=== PATIENT | female | born 1960 | race Caucasian/White ===

== ENCOUNTER 2016-08-11 07:19 | Emergency (ER) | payer OTHER ==
[~2016-08-11] VITALS: Ht 172.7 cm; Wt 100.0 kg
[~2016-08-11 07:19] MED LIST: LEVO150T7 PO
[2016-08-11 07:21] VITALS: BP 124/92; PULSE 82; RESP 20; TEMP 97.8; O2SAT 95
[2016-08-11] MEDS ORDERED: ALBUAER3 INH (07:56)
[2016-08-11] MEDS ORDERED: PRED-503 PO (07:56)
[2016-08-11] MEDS ORDERED: BENZ100 PO (07:56)
[2016-08-11] MEDS ORDERED: AZIT500T2 PO (07:56)
--- NOTE | 2016-08-11 07:57 | PD ---
HPI Chief Complaint: Cold / Flu Symptoms Time Seen by Provider: 07:54 Travel History International Travel<30 days: No Contact w/Intl Traveler<30days: No Traveled to known affect area: No History of Present Illness HPI 56-year-old female presents to the emergency department with complaint of chest congestion and cough 8 days. Reports subjective fever on Saturday but denies fever since. Denies sore throat, ear pain, nasal congestion. Cough is worse at night. Reports chest tightness. Denies shortness of breath. Says she can hear "rattling" in her chest at night. Denies abdominal pain, nausea, vomiting. Has an appointment with her primary care provider, Dr. Porras, on Saturday. Allergies to bee stings. No other modifying factors or associated signs and symptoms. PFSH Past Medical History Thyroid Disease: Yes ?: Not : 4 Para: 2 Miscarriage: 0 : 2 Past Surgical History Section: Yes (x2) Oral Surgery: Yes (wisdom teeth removed) Other Surgery: Yes (Cyst removed from tail of spine) Social History Alcohol Use: No Tobacco Use: No Substance Use: No (Patient denies any substance use/abuse.) Allergies-Medications (Allergen,Severity, Reaction): Coded Allergies: Bee Sting (Verified Allergy, Intermediate, swelling, 08/11/16) Reported Meds & Prescriptions Reported Meds & Active Scripts Active Tessalon Perles (Benzonatate) 100 Mg Cap 100 Mg PO TID PRN Azithromycin 500 Mg Tab 500 Mg PO DAILY Deltasone (Prednisone) 20 Mg Tab 40 Mg PO DAILY 5 Days Proair Hfa 8.5 GM Inh (Albuterol Sulfate) 90 Mcg/Act Aer 2 Puff INH Q4-6H PRN 108 mcg/actuation Levothyroxine (Levothyroxine Sodium) 150 Mcg Tab 150 Mcg PO DAILY Review of Systems Except as stated in HPI: all other systems reviewed are Neg Physical Exam Narrative GENERAL: Well-nourished, well-developed female patient, in no acute distress SKIN: Warm and dry. HEAD: Atraumatic. Normocephalic. EYES: Pupils equal and round. No scleral icterus. No injection or drainage. ENT: Mucosa pink and moist. EARS: Bilateral pinnae and external canals appear within normal limits. NECK: Trachea midline. No lymphadenopathy. CARDIOVASCULAR: Regular rate and rhythm. No murmur appreciated. RESPIRATORY: No accessory muscle use. Lungs clear to auscultation and with decreased air movement in bilateral bases. Breath sounds equal bilaterally. No retractions or tachypnea. No Audible wheezing noted. GASTROINTESTINAL: Abdomen soft, non-tender, nondistended. Hepatic and splenic margins not palpable. Bowel sounds are active 4 quadrants. MUSCULOSKELETAL: No obvious deformities. No clubbing. No cyanosis. No edema. NEUROLOGICAL: Awake and alert. Oriented 3. No obvious cranial nerve deficits. Motor grossly within normal limits. Normal speech. Moves all extremities. 5/5 strength to all extremities. PSYCHIATRIC: Appropriate mood and affect; insight and judgment normal. Data Data Last Documented VS Vital Signs Date Time Temp Pulse Resp B/P Pulse Ox O2 Delivery O2 Flow Rate FiO2 08/11/16 07:21 97.8 82 20 124/92 95 Room Air [facility] Medical Decision Making Medical Screen Exam Complete: Yes Emergency Medical Condition: Yes Medical Record Reviewed: Yes Differential Diagnosis Bronchitis, pneumonia, upper respiratory infection Narrative Course 56-year-old female physical examination consistent with bronchitis. Patient is afebrile and nontoxic-appearing. Reports subjective fever on Saturday, but denies fever since. Patient is in no acute distress and her oxygen saturation is 95% on room air. No retractions or tachypnea. Lungs are clear and equal bilaterally with decreased air movement in bilateral bases. I did recommend a chest x-ray, albuterol nebulizer, and to start steroids in the ER. The patient declined all this therapy and said she knows what is wrong with her that she just needs a Z-Joel. She says the albuterol nebulizer will make her vomit and she doesn't want to exacerbate her symptoms anymore. She says she doesn't like to take medications and would rather not take the oral steroids. I discussed my recommendations again and the patient continued to decline, requesting only an antibiotic. I will prescribe a pro-air inhaler, Deltasone, and Tessalon Perles and the patient can use the prescriptions at her discretion ; this was discussed with the patient. Azithromycin prescribed for home. Patient has follow-up appointment with Dr. Porras on Saturday. Patient verbalizes understanding and agreement with treatment plan. Patient is medically cleared and stable for discharge. Discussed reasons to return to the emergency department. Instructed patient to follow up with primary care provider. Patient agrees with treatment plan. The patients vital signs are stable and the patient is stable for outpatient follow-up and treatment. Patient discharged home, stable and in no acute distress. Diagnosis Primary Impression: Bronchitis Referrals: Primary Care Physician Patient Instructions: Acute Bronchitis (ED), General Instructions, Safe Use of Cough and Cold Medicines (ED) Departure Forms: Tests/Procedures, Work Release Enter return to work date: Aug 13, 2016 Additional Instructions: Use Albuterol inhaler as prescribed Take oral steroids as prescribed and complete full course Use Tessalon Perles as prescribed to decrease coughing spasms [id number] decongestants or antihistamines as directed and as needed for symptom management Your cough can last 4-6 weeks Drink plenty of fluids to prevent dehydration Use hot air humidifier to decrease cough exacerbation Turn off ceiling fans and sleep with head of bed elevated Avoid triggers such as second hand smoke, dust, known allergens Follow-up with your primary care provider Return to the emergency department immediately with worsening of symptoms Med/Other Pt SpecificInfo: Prescription(s) given Scripts Benzonatate (Tessalon Perles)100 Mg [id number] Mg PO TID PRN (COUGH) #20 CAP Ref 0 Prov:Britney Cook 08/11/16 Azithromycin 500 Mg [id number] Mg PO DAILY #5 TAB Ref 0 Prov:Britney Cook 08/11/16 Prednisone (Deltasone)20 Mg Tab40 Mg PO DAILY 5 Days Ref 0 Prov:Britney Cook 08/11/16 Albuterol 8.5 GM Inh (Proair Hfa 8.5 GM Inh)90 Mcg/Act Aer2 Puff INH Q4-6H PRN ( SOB/WHEEZING) #1 INHALER Ref 0 108 mcg/actuation Prov:Britney Cook 08/11/16 Disposition: 01 DISCHARGE HOME Condition: Stable Britney Cook Aug 11, 2016 07:57
[2016-08-12] MEDS ORDERED: LEVO150T7 PO (06:26)
[2016-08-13] MEDS ORDERED: AZIT500T2 PO (16:22)
[2016-09-27] MEDS ORDERED: LEVO150T7 PO (08:37)
== END 2016-08-11 08:15 | disposition home or self-care (01) ==
LOC: NEPK 07:19
DX: J40 Bronchitis, not specified as acute or chronic (principal); E07.9 Disorder of thyroid, unspecified
CPT/HCPCS: 99283

== ENCOUNTER → 2016-09-20 | Outpatient (CLI) | payer OTHER ==
[~2016-09-20] MED LIST changes: +AZIT500T2 PO
[2016-09-20 12:54] LABS: AUTOMATED NEUTROPHIL # 2.7 TH/MM3 (1.8-7.7); BASOPHIL # 0.1 TH/MM3 (0-0.2); BASOPHIL % 1.1 % (0.0-2.0); EOSINOPHIL # 0.1 TH/MM3 (0-0.4); EOSINOPHIL % 1.4 % (0.0-4.0); HEMO FLAGS DIFF FINAL; LYMPH % 34.8 % (9.0-44.0); LYMPHOCYTE # 1.7 TH/MM3 (1.0-4.8); MEAN CELL VOLUME 91.4 FL (80.0-100.0); MEAN CORPUSCULAR HEMOGLOBIN 29.7 PG (27.0-34.0); MEAN CORPUSCULAR HGB CONC 32.5 % (32.0-36.0); MONO % 8.3 % (0.0-8.0); NEUT % 54.4 % (16.0-70.0); PLATELET COUNT 348 TH/MM3 (150-450); RED BLOOD COUNT 4.26 MIL/MM3 (4.00-5.30); WHITE BLOOD COUNT 4.9 TH/MM3 (4.0-11.0)
[2016-09-20 13:24] LABS: ALT (GPT) 23 U/L (10-53); ANION GAP 7 MEQ/L (5-15); AST (GOT) 19 U/L (15-37); BICARBONATE 29.7 MEQ/L (21.0-32.0); BLOOD UREA NITROGEN 14 MG/DL (7-18); CHLORIDE 104 MEQ/L (98-107); GLOMERULAR FILTRATION RATE 100 ML/MIN (>89); GLUCOSE,FASTING 79 MG/DL (74-99); POTASSIUM 4.1 MEQ/L (3.5-5.1); SODIUM (NA) 141 MEQ/L (136-145)
[2016-09-20 13:35] LABS: ALKALINE PHOSPHATASE 71 U/L (45-117); HDL CHOLESTEROL 63.9 MG/DL (40.0-60.0); LDL CHOLESTEROL 95 MG/DL (0-99); TOTAL BILIRUBIN ADULT 0.9 MG/DL (0.2-1.0)
== END ==
LOC: CLAB 12:25
PROVIDERS: ATTEND Family Medicine
DX: J40 Bronchitis, not specified as acute or chronic (principal); E03.9 Hypothyroidism, unspecified; M54.30 Sciatica, unspecified side; E66.9 Obesity, unspecified
CPT/HCPCS: 36415; 80053; 80061; 84443; 85025

== ENCOUNTER 2016-12-01 13:31 | Emergency (ER) | payer OTHER ==
[~2016-12-01] VITALS: Ht 165.1 cm; Wt 90.0 kg
[~2016-12-01 13:31] MED LIST changes: -AZIT500T2 PO
[2016-12-01 13:33] VITALS: BP 122/70; PULSE 87; RESP 24; TEMP 98.2; O2SAT 96
[2016-12-01 13:48] VITALS: BP 147/89; PULSE 72; RESP 16; O2SAT 98
--- NOTE | 2016-12-01 14:03 | PD ---
HPI Chief Complaint: Abdominal Pain Time Seen by Provider: 13:46 Travel History International Travel<30 days: No Contact w/Intl Traveler<30days: No Traveled to known affect area: No History of Present Illness HPI The patient was seen and examined in the presence of the nurse. This patient has had a problem with her left groin/left lower quadrant abdominal wall area for about 2 years. She thinks it's been getting much worse in the last 2 months. She sometimes feels a bulge or swelling there. No vomiting or diarrhea or fever or bleeding. Certain movements aggravate it such as getting into a car or rising from sitting to standing. No alleviating factors. Some severity is moderate. She has history of 2 C-sections PFSH Past Medical History Diminished Hearing: No Thyroid Disease: Yes Tetanus Vaccination: Unknown Influenza Vaccination: No ?: Not : 4 Para: 2 Miscarriage: 0 : 2 Past Surgical History Section: Yes (x2) Oral Surgery: Yes (WISDOM TEETH) Other Surgery: Yes (TAIL BONE CYST) Social History Alcohol Use: No Tobacco Use: No Substance Use: No Allergies-Medications (Allergen,Severity, Reaction): Coded Allergies: Bee Sting (Verified Allergy, Intermediate, swelling, 12/01/16) Uncoded Allergies: kale (Allergy, Severe, 09/27/16) Vomiting Reported Meds & Prescriptions Reported Meds & Active Scripts Active Levothyroxine (Levothyroxine Sodium) 150 Mcg Tab 150 Mcg PO DAILY Review of Systems General / Constitutional: No: Fever Eyes: No: Visual changes HENT: No: Headaches Cardiovascular: No: Chest Pain or Discomfort Respiratory: No: Shortness of Breath Gastrointestinal: Positive: Abdominal Pain Genitourinary: No: Dysuria Musculoskeletal: No: Pain Skin: No Rash Neurologic: No: Weakness Psychiatric: No: Depression Endocrine: No: Polydipsia Hematologic/Lymphatic: No: Easy Bruising Physical Exam Narrative GENERAL: Well-nourished, well-developed patient in no apparent distress. SKIN: Focused skin assessment reveals no rash and nodules. Skin is Warm and dry. HEAD: Atraumatic. Normocephalic. EYES: Pupils equal and round. No scleral icterus. No injection or drainage. ENT: No nasal bleeding or discharge. Mucous membranes pink and moist. NECK: Trachea midline. No JVD. CARDIOVASCULAR: Regular rate and rhythm. No murmur appreciated. RESPIRATORY: No accessory muscle use. Clear to auscultation. Breath sounds equal bilaterally. GASTROINTESTINAL: Abdomen soft, there is some superficial tenderness in the left lower quadrant and left inguinal region. It almost seems isolated to the abdominal wall but not entirely clear. I don't find an obvious hernia there. There is no erythema or bruising or warmth. Nondistended. Hepatic and splenic margins not palpable. MUSCULOSKELETAL: No obvious deformities. No clubbing. No cyanosis. No edema. NEUROLOGICAL: Awake and alert. No obvious cranial nerve deficits. Motor grossly within normal limits. Normal speech. PSYCHIATRIC: Appropriate mood and affect; insight and judgment normal. Data Data Last Documented VS Vital Signs Date Time Temp Pulse Resp B/P Pulse Ox O2 Delivery O2 Flow Rate FiO2 12/01/16 13:48 72 16 147/89 98 Room Air 12/01/16 13:[address] Abd/Pel W/O Iv Contrast (12/01/16 ) [facility] Medical Decision Making Medical Screen Exam Complete: Yes Emergency Medical Condition: Yes Medical Record Reviewed: Yes Differential Diagnosis Hernia, abdominal muscle tear, colitis Narrative Course I have reviewed the patient's electronic medical record. Is nothing objective to see on exam CT of abdomen and pelvis was done and the only finding is a subtle panniculitis type finding. I've written her week of Bactrim DS for this. Stable for outpatient follow-up Diagnosis Primary Impression: Panniculitis Additional Instructions: The patient was advised to follow up with their physician and return if they worsen. Med/Other Pt SpecificInfo: Prescription(s) given Scripts Sulfamethoxazole-Trimethoprim (Bactrim DS)800-160 Mg Tab1 Tab PO BID #14 TAB Ref 0 Prov:Osorio Sierra MD 12/01/16 Disposition: 01 DISCHARGE HOME Condition: Stable Osorio Sierra MD Dec 01, 2016 14:03
--- NOTE | 2016-12-01 15:05 | RADRPT ---
EXAM DATE/TIME: 12/01/2016 14:37 [facility] COMPARISON: No previous studies available for comparison. INDICATIONS : Left lower quadrant pain. ORAL CONTRAST: No oral contrast ingested. RADIATION DOSE: 15.77 CTDIvol (mGy) MEDICAL HISTORY : None SURGICAL HISTORY : section. ENCOUNTER: Initial ACUITY: 1 day PAIN SCALE: 10/10 LOCATION: Left lower quadrant TECHNIQUE: Volumetric scanning of the abdomen and pelvis was performed. Using automated exposure control and ad justment of the mA and/or kV according to patient size, radiation dose was kept as low as reasonably achievable to obtain optimal diagnostic quality images. DICOM format image data is available electro nically for review and comparison. FINDINGS: LOWER LUNGS: The visualized lower lungs are clear. LIVER: Homogeneous density without suspicious lesion. Simple cysts are identified in the liver. The largest measures 2.9 cm. There is no dilation of the biliary tree. No calcified gallstones. SPLEEN: Normal size without lesion. PANCREAS: Within normal limits. KIDNEYS: Normal in size and shape. There is no mass, stone, or hydronephrosis. ADRENAL GLANDS: Within normal limits. VASCULAR: There is no aortic aneurysm. BOWEL/MESENTERY: Subtle increased density is identified in the mesenteric fat along the mesenteric vessels. There is n o evidence of significant adenopathy, or gas/fluid collections or mass. The stomach, small bowel, and colon demonstrate no acute abnormality. There is no free intraperitoneal air or fluid. ABDOMINAL WALL: Within normal limits. RETROPERITONEUM: There is no lymphadenopathy. BLADDER: No wall thickening or mass. REPRODUCTIVE: Within normal limits. INGUINAL: There is no lymphadenopathy or hernia. MUSCULOSKELETAL: Within normal limits for patient age. CONCLUSION: 1. Subtle increased density in the mesenteric fat characteristic of mild panniculitis. 2. Simple hepatic cysts. 3. No other significant abnormality. Kedar Aguilera MD on December 01, 2016 at 15:00 Board Certified Radiologist. This report was verified electronically.
[2016-12-01] MEDS ORDERED: BACT800T5 PO (15:57)
[2017-01-01] MEDS ORDERED: LEVO150T7 PO (15:30)
== END 2016-12-01 17:40 | disposition home or self-care (01) ==
LOC: NEPE 13:31
DX: M79.3 Panniculitis, unspecified (principal); E07.9 Disorder of thyroid, unspecified; Z79.899 Other long term (current) drug therapy
CPT/HCPCS: 74176; 99284

== ENCOUNTER → 2016-12-25 | Outpatient (CLI) | payer OTHER ==
[~2016-12-25] MED LIST changes: +BACT800T5 PO
--- NOTE | 2016-12-25 13:28 | RADRPT ---
EXAM DATE/TIME: 12/25/2016 12:20 [facility] COMPARISON: CT ABDOMEN & PELVIS W/O CONTRAST, December 01, 2016, 14:37. INDICATIONS : Abdomen pain. MEDICAL HISTORY : Hypothyroidism. SURGICAL HISTORY : section. ENCOUNTER: Initial ACUITY: 1 week PAIN SCORE: 2/10 LOCATION: Abdomen. MEASUREMENTS: LIVER: 15.5 cm length COMMON DUCT: 2 mm RIGHT KIDNEY: 11.2 x 5.2 x 6.0 cm LEFT KIDNEY: 11.8 x 6.3 x 6.0 cm SPLEEN: 9.2 cm length AORTA: 2.3cm maximal FINDINGS: LIVER: Cysts near the dome measuring up to 3.2 cm in size. No solid or concerning lesion. No intrahepatic lo wer distention. COMMON DUCT: No intraluminal mass or stone visualized. GALLBLADDER: Contains no stones, demonstrates no wall thickening or pericholecystic fluid. PANCREAS: The visualized portions are within normal limits. RIGHT KIDNEY: No hydronephrosis, stone or mass. LEFT KIDNEY: No hydronephrosis, stone or mass. SPLEEN: No focal lesion. AORTA: Non aneurysmal. IVC: Within normal limits. Examination of the left lower quadrant is limited. Some shadowing normal caliber bowel loops are note d. No definite mass. CONCLUSION: No acute ultrasound abnormality of the abdomen. Benign-appearing cysts are again seen of the liver. King Taylor MD on December 25, 2016 at 13:21 Board Certified Radiologist. This report was verified electronically.
== END ==
LOC: HRAD 11:33
PROVIDERS: ATTEND Nurse Practitioner Family
DX: R10.32 Left lower quadrant pain (principal)
CPT/HCPCS: 76700

== ENCOUNTER 2017-05-01 15:21 | Emergency (ER) | payer SELFPAY ==
[~2017-05-01] VITALS: Ht 165.1 cm; Wt 88.5 kg
[~2017-05-01 15:21] MED LIST changes: -BACT800T5 PO
[2017-05-01 15:22] VITALS: BP 141/77; PULSE 80; RESP 18; TEMP 98.4; O2SAT 98
--- NOTE | 2017-05-01 18:33 | PD ---
HPI Chief Complaint: Abdominal Pain Time Seen by Provider: 18:09 Travel History International Travel<30 days: No Contact w/Intl Traveler<30days: No Traveled to known affect area: No History of Present Illness HPI 56-year-old female previously seen at the [facility] clinic until February 19 presents to emergency department with ongoing and worsening left sided lower abdominal pain with radiation into the left leg. Also states a history of hypothyroidism treated with Synthroid. She states she does not take any, pain medication and only takes her Synthroid as previously directed. She states she was seen by [facility], a free clinic only open on Fridays , and had 2 x-rays ordered but she has not gotten the follow-up report on those. She is here as she feels she is "disabled" and unable to walk, without a walker or cane, she states difficulty sitting to defecate, or sitting for any type of activity. Patient denies fever, chills, or other symptoms. She denies change in urine or bowels. Patient was previously seen here on November with similar complaints which she feels have worsened. At that time she had a CT scan showing a panniculitis but otherwise no acute findings. Pain is currently 9 out of 10 according to the patient. She is allergic to KL, and honey bees. PFSH Past Medical History Diminished Hearing: No Musculoskeletal: Yes (SCIATIC NERVE PAIN ) Thyroid Disease: Yes ?: Not : 4 Para: 2 Miscarriage: 0 : 2 Past Surgical History Section: Yes (x2) Oral Surgery: Yes (WISDOM TEETH) Other Surgery: Yes (TAIL BONE CYST) Social History Alcohol Use: No Tobacco Use: No Substance Use: No Allergies-Medications (Allergen,Severity, Reaction): Coded Allergies: bee venom protein (honey bee) (Verified Allergy, Intermediate, swelling, ) Uncoded Allergies: kale (Allergy, Severe, 09/27/16) Vomiting Reported Meds & Prescriptions Reported Meds & Active Scripts Active Levothyroxine (Levothyroxine Sodium) 150 Mcg Tab 150 Mcg PO DAILY Review of Systems Except as stated in HPI: all other systems reviewed are Neg General / Constitutional: No: Fever, Chills Eyes: No: Visual changes HENT: No: Headaches Cardiovascular: No: Chest Pain or Discomfort Respiratory: No: Shortness of Breath Gastrointestinal: No: Nausea, Vomiting, Diarrhea, Abdominal Pain Genitourinary: No: Dysuria Musculoskeletal: Positive: Myalgias, Arthralgias, Limited ROM, Pain Skin: No Rash Neurologic: No: Weakness Psychiatric: No: Depression Endocrine: No: Polydipsia Hematologic/Lymphatic: No: Easy Bruising Physical Exam Exam Limitations: Clinical Condition Narrative GENERAL: Patient is tearful, walking with a walker. She prefers not to lay on the bed and she feels it worsens her condition. SKIN: Warm and dry. Normal color. Normal turgor. No sign of rash or cellulitis per HEAD: Atraumatic. Normocephalic. EYES: Pupils equal and round. No scleral icterus. No injection or drainage. ENT: No nasal bleeding or discharge. Mucous membranes pink and moist. Pharynx is clear. Airway is patent. NECK: Trachea midline. Supple and nontender. CARDIOVASCULAR: Regular rate and rhythm. RESPIRATORY: No accessory muscle use. Clear to auscultation. Breath sounds equal bilaterally. GASTROINTESTINAL: Abdomen soft, nondistended. Hepatic and splenic margins not palpable. Patient complains of pain with palpation over the left lower quadrant and inguinal region. No obvious masses are appreciated. Bowel sounds are present in all quadrants. No CVA tenderness. MUSCULOSKELETAL: Extremities without clubbing, cyanosis, or edema. No obvious deformities. Exam is limited secondary to the patient's condition. NEUROLOGICAL: Awake and alert. No obvious cranial nerve deficits. Motor grossly within normal limits. Five out of 5 muscle strength in the arms and legs. Normal speech. PSYCHIATRIC: Appropriate mood and affect; insight and judgment normal. Data Data Last Documented VS Vital Signs Date Time Temp Pulse Resp B/P (MAP) Pulse Ox O2 Delivery O2 Flow Rate FiO2 05/01/17 19:17 84 18 142/65 (90) 97 Room Air 05/01/17 15:22 98.4 Orders Orders Complete Blood Count With Diff (05/01/17 18:36) Comprehensive Metabolic Panel (05/01/17 18:36) Lipase (05/01/17 18:36) Lactic Acid (05/01/17 18:36) Prothrombin Time / Inr (Pt) (05/01/17 18:36) Act Partial Throm Time (Ptt) (05/01/17 18:36) Urinalysis - C+S If Indicated (05/01/17 18:36) Ct Abd/Pel W Iv Contrast(Rout) (05/01/17 18:36) Iv Access Insert/Monitor (05/01/17 18:36) Ecg Monitoring (05/01/17 18:36) Oximetry (05/01/17 18:36) Sodium Chlor 0.9% 1000 Ml Inj (Ns 1000 M (05/01/17 18:36) Sodium Chloride 0.9% Flush (Ns Flush) (05/01/17 18:45) Ketorolac Inj (Toradol Inj) (05/01/17 18:45) Thyroid Stimulating Hormone (05/01/17 18:36) MDM Medical Decision Making Medical Screen Exam Complete: Yes Emergency Medical Condition: Yes Medical Record Reviewed: Yes Differential Diagnosis Sciatica. Abdominal pain. Hip pain. Sacroiliitis. Malingering. Narrative Course Patient is felt to be medically stable at time of exam. Labs ordered including CBC, CMP, lactic acid, and urinalysis. IV access is obtained patient is given 30 mg Toradol IV as well as 1000 mL normal saline bolus. CT of the abdomen with IV contrast was ordered. At 1900 hrs. Care of the patient is turned over to [facility] PAC, for final disposition and treatment plan. Condition: Stable Ervin Lees May 01, 2017 18:33
[2017-05-01] MEDS ORDERED: SODIUM CHLOR 0.9% 1000 ML INJ 1,000 ML IV SCH (18:36)
[2017-05-01] MEDS ORDERED: SODIUM CHLORIDE 0.9% FLUSH 10 ML FLUSH IV FLUSH PRN (18:45)
[2017-05-01] MEDS ORDERED: KETOROLAC TROMETHAMINE 30 MG/ML (IVP) VIAL IVP ONE (18:45)
[2017-05-01 19:17] VITALS: BP 142/65; PULSE 84; RESP 18; O2SAT 97
--- NOTE | 2017-05-01 19:36 | PD ---
Physical Exam Date Seen by Provider: May 01, 2017 Time Seen by Provider: 19:33 Narrative GENERAL: This is a well-nourished, well-developed patient, in no apparent distress. SKIN: No rashes, ecchymoses or lesions. Warm and dry. HEAD: Atraumatic. Normocephalic. EYES: PERRL, EOMI, no discharge or injection. No scleral icterus. EARS: Clear NOSE: Nasal turbinates appear normal. THROAT: Mucosa pink and moist. Airway patent. NECK: Trachea midline. supple, moves head freely. LUNGS: Clear to auscultation. CV: Regular in rhythm. ABDOMEN: Soft, morbidly obese, tenderness in the left lower quadrant as well as into the left groin and left flank. No upper abdominal or right sided abdominal pain. No rebound. No guarding. No obvious deformity. The skin appears normal. She has a scar in her lower pubic region from 2. Back: Patient has no central bony tenderness to palpation of dorsal lumbar spine. She has tenderness in the left lower lumbar spine at the left SI joint region into the left hip. She has pain down the left leg into the left groin and leg. She has intact sensation with good distal pulses. She does have 1+ edema in the lower legs. EXT: No clubbing cyanosis, +1 pedal edema. I suspect this is more due to her large body habitus. Data Data Last Documented VS Vital Signs Date Time Temp Pulse Resp B/P (MAP) Pulse Ox O2 Delivery O2 Flow Rate FiO2 05/01/17 19:17 84 18 142/65 (90) 97 Room Air 05/01/17 15:22 98.4 Orders Orders Complete Blood Count With Diff (05/01/17 18:36) Comprehensive Metabolic Panel (05/01/17 18:36) Lipase (05/01/17 18:36) Lactic Acid (05/01/17 18:36) Prothrombin Time / Inr (Pt) (05/01/17 18:36) Act Partial Throm Time (Ptt) (05/01/17 18:36) Urinalysis - C+S If Indicated (05/01/17 18:36) Ct Abd/Pel W Iv Contrast(Rout) (05/01/17 18:36) Iv Access Insert/Monitor (05/01/17 18:36) Ecg Monitoring (05/01/17 18:36) Oximetry (05/01/17 18:36) Sodium Chlor 0.9% 1000 Ml Inj (Ns 1000 M (05/01/17 18:36) Sodium Chloride 0.9% Flush (Ns Flush) (05/01/17 18:45) Ketorolac Inj (Toradol Inj) (05/01/17 18:45) Thyroid Stimulating Hormone (05/01/17 18:36) Iohexol 350 Inj (Omnipaque 350 Inj) (05/01/17 21:28) Ed Discharge Order (05/01/17 21:42) Labs Laboratory Tests Test 05/01/17 19:20 05/01/17 20:09 White Blood Count 4.8 TH/MM3 Red Blood Count 3.88 MIL/MM3 Hemoglobin 12.3 GM/DL Hematocrit 35.8 % Mean Corpuscular Volume 92.3 FL Mean Corpuscular Hemoglobin 31.7 PG Mean Corpuscular Hemoglobin Concent 34.3 % Red Cell Distribution Width 13.1 % Platelet Count 344 TH/MM3 Mean Platelet Volume 7.6 FL Neutrophils (%) (Auto) 48.0 % Lymphocytes (%) (Auto) 40.0 % Monocytes (%) (Auto) 9.7 % Eosinophils (%) (Auto) 1.3 % Basophils (%) (Auto) 1.0 % Neutrophils # (Auto) 2.3 TH/MM3 Lymphocytes # (Auto) 1.9 TH/MM3 Monocytes # (Auto) 0.5 TH/MM3 Eosinophils # (Auto) 0.1 TH/MM3 Basophils # (Auto) 0.0 TH/MM3 CBC Comment DIFF FINAL Differential Comment Prothrombin Time 10.8 SEC Prothromb Time International Ratio 1.1 RATIO Activated Partial Thromboplast Time 27.5 SEC Blood Urea Nitrogen 13 MG/DL Creatinine 0.59 MG/DL Random Glucose 77 MG/DL Total Protein 7.7 GM/DL Albumin 3.8 GM/DL Calcium Level 8.9 MG/DL Alkaline Phosphatase 70 U/L Aspartate Amino Transf (AST/SGOT) 20 U/L Alanine Aminotransferase (ALT/SGPT) 22 U/L Total Bilirubin 1.2 MG/DL Sodium Level 139 MEQ/L Potassium Level 3.2 MEQ/L Chloride Level 101 MEQ/L Carbon Dioxide Level 30.1 MEQ/L Anion Gap 8 MEQ/L Estimat Glomerular Filtration Rate 106 ML/MIN Lactic Acid Level 0.7 mmol/L Lipase 112 U/L Thyroid Stimulating Hormone 3rd Gen 3.750 uIU/ML Urine Color YELLOW Urine Turbidity CLEAR Urine pH 5.5 Urine Specific [place] 1.023 Urine Protein NEG mg/dL Urine Glucose (UA) NEG mg/dL Urine Ketones NEG mg/dL Urine Occult Blood TRACE Urine Nitrite NEG Urine Bilirubin NEG Urine Urobilinogen LESS THAN 2.0 MG/DL Urine Leukocyte Esterase MOD Urine RBC 1 /hpf Urine WBC 5 /hpf Urine Squamous Epithelial Cells 1 /hpf Urine Amorphous Sediment RARE Urine Mucus FEW /lpf Microscopic Urinalysis Comment CULT NOT INDICATED MDM Medical Record Reviewed: Yes Supervised Visit with DEMARIO: No Interpretation(s) Laboratory Tests Test 05/01/17 19:20 05/01/17 20:09 White Blood Count 4.8 TH/MM3 Red Blood Count 3.88 MIL/MM3 Hemoglobin 12.3 GM/DL Hematocrit 35.8 % Mean Corpuscular Volume 92.3 FL Mean Corpuscular Hemoglobin 31.7 PG Mean Corpuscular Hemoglobin Concent 34.3 % Red Cell Distribution Width 13.1 % Platelet Count 344 TH/MM3 Mean Platelet Volume 7.6 FL Neutrophils (%) (Auto) 48.0 % Lymphocytes (%) (Auto) 40.0 % Monocytes (%) (Auto) 9.7 % Eosinophils (%) (Auto) 1.3 % Basophils (%) (Auto) 1.0 % Neutrophils # (Auto) 2.3 TH/MM3 Lymphocytes # (Auto) 1.9 TH/MM3 Monocytes # (Auto) 0.5 TH/MM3 Eosinophils # (Auto) 0.1 TH/MM3 Basophils # (Auto) 0.0 TH/MM3 CBC Comment DIFF FINAL Differential Comment Prothrombin Time 10.8 SEC Prothromb Time International Ratio 1.1 RATIO Activated Partial Thromboplast Time 27.5 SEC Blood Urea Nitrogen 13 MG/DL Creatinine 0.59 MG/DL Random Glucose 77 MG/DL Total Protein 7.7 GM/DL Albumin 3.8 GM/DL Calcium Level 8.9 MG/DL Alkaline Phosphatase 70 U/L Aspartate Amino Transf (AST/SGOT) 20 U/L Alanine Aminotransferase (ALT/SGPT) 22 U/L Total Bilirubin 1.2 MG/DL Sodium Level 139 MEQ/L Potassium Level 3.2 MEQ/L Chloride Level 101 MEQ/L Carbon Dioxide Level 30.1 MEQ/L Anion Gap 8 MEQ/L Estimat Glomerular Filtration Rate 106 ML/MIN Lactic Acid Level 0.7 mmol/L Lipase 112 U/L Thyroid Stimulating Hormone 3rd Gen 3.750 uIU/ML Urine Color YELLOW Urine Turbidity CLEAR Urine pH 5.5 Urine Specific [place] 1.023 Urine Protein NEG mg/dL Urine Glucose (UA) NEG mg/dL Urine Ketones NEG mg/dL Urine Occult Blood TRACE Urine Nitrite NEG Urine Bilirubin NEG Urine Urobilinogen LESS THAN 2.0 MG/DL Urine Leukocyte Esterase MOD Urine RBC 1 /hpf Urine WBC 5 /hpf Urine Squamous Epithelial Cells 1 /hpf Urine Amorphous Sediment RARE Urine Mucus FEW /lpf Microscopic Urinalysis Comment CULT NOT INDICATED Last 24 hours Impressions Abdomen/Pelvis CT 05/01/17 1836 Signed Impressions: Service Date/Time: Saturday, May 01, 2017 21:05 - CONCLUSION: No free fluid or mass identified. No evidence of bowel obstruction. No significant inflammation. Juan Antonio Escobar MD Differential Diagnosis Differential diagnoses: Acute exacerbation of chronic pain, degenerative disc disease, sciatica, panniculitis, femoral hernia, diverticulitis Narrative Course IV access is obtained. Routine laboratory tests of her analysis including CBC, chemistry and CT of the abdomen. I was asked by the daytime PA to review the patient's laboratory tests assist with the diagnosis and disposition of this patient. Patient's laboratory tests including a CAT scan have been reviewed. There is no acute intra-abdominal process identified. Review of the CAT scan reveals significant arthritic changes in the left hip. She has some degenerative changes in the lumbar spine as well. I suspect the patient's pain is all coming from her arthritic changes in her hip and back. I see no findings of any intra-abdominal process. Patient is given prescription for diclofenac and advised to follow-up. This is left hip arthritis, back pain with sciatica Diagnosis Primary Impression: left hip arthritis Additional Impression: back pain with sciatica Referrals: [facility] 3 days Patient Instructions: General Instructions Additional Instruction: Rest. Ice for heat which ever helps the best . Diclofenac. Follow-up with a primary care doctor in one week. Return to the ER for emergencies. Med/Other Pt SpecificInfo: Prescription(s) given Scripts Diclofenac Sodium DR (Diclofenac Sodium DR) 75 Mg Tabdr 75 MG PO BID, #20 TAB 0 Refills Prov: Highet,Josephine H. MD 05/01/17 Disposition: 01 DISCHARGE HOME Condition: Stable Hemanth Garcia May 01, 2017 19:36
[2017-05-01 20:14] LABS: AUTOMATED NEUTROPHIL # 2.3 TH/MM3 (1.8-7.7); EOSINOPHIL # 0.1 TH/MM3 (0-0.4); EOSINOPHIL % 1.3 % (0.0-4.0); HEMATOCRIT 35.8 % (35.0-46.0); HEMOGLOBIN 12.3 GM/DL (11.6-15.3); LYMPHOCYTE # 1.9 TH/MM3 (1.0-4.8); MEAN CELL VOLUME 92.3 FL (80.0-100.0); MEAN CORPUSCULAR HEMOGLOBIN 31.7 PG (27.0-34.0); MEAN CORPUSCULAR HGB CONC 34.3 % (32.0-36.0); MEAN PLATELET VOLUME 7.6 FL (7.0-11.0); MONO % 9.7 % (0.0-8.0); MONOCYTE # 0.5 TH/MM3 (0-0.9); PLATELET COUNT 344 TH/MM3 (150-450); RED BLOOD COUNT 3.88 MIL/MM3 (4.00-5.30); RED CELL DISTRIBUTION WIDTH 13.1 % (11.6-17.2); WHITE BLOOD COUNT 4.8 TH/MM3 (4.0-11.0)
[2017-05-01 20:18] LABS: AMORPHOUS SEDIMENT, URINE RARE; BILIRUBIN, URINE NEG (NEG); BLOOD, URINE TRACE (NEG); GLUCOSE,URINE NEG (NEG); KETONE, URINE NEG (NEG); MUCUS URINE FEW /lpf (OCC); NITRITE,URINE NEG (NEG); PH, URINE 5.5 (5.0-8.5); SQUAMOUS EPITHELIAL CELL URINE 1 /hpf (0-5); URINE COLOR YELLOW (YELLW/STRAW); URINE LEUKOCYTE ESTERASE MOD (NEG)
[2017-05-01 20:28] LABS: ALBUMIN 3.8 GM/DL (3.4-5.0); AST (GOT) 20 U/L (15-37); BICARBONATE 30.1 MEQ/L (21.0-32.0); BLOOD UREA NITROGEN 13 MG/DL (7-18); CALCIUM 8.9 MG/DL (8.5-10.1); CHLORIDE 101 MEQ/L (98-107); CREATININE 0.59 MG/DL (0.50-1.00); GLOMERULAR FILTRATION RATE 106 ML/MIN (>89); GLUCOSE,RANDOM 77 MG/DL (74-106); LIPASE 112 U/L (73-393); SODIUM (NA) 139 MEQ/L (136-145)
[2017-05-01 20:29] LABS: ALT (GPT) 22 U/L (10-53)
[2017-05-01 20:33] LABS: INTERNATIONAL NORMALIZED RATIO 1.1 RATIO; PROTHROMBIN TIME - PATIENT 10.8 SEC (9.8-11.6)
[2017-05-01 20:39] LABS: ALKALINE PHOSPHATASE 70 U/L (45-117); TOTAL BILIRUBIN ADULT 1.2 MG/DL (0.2-1.0); TOTAL PROTEIN 7.7 GM/DL (6.4-8.2)
--- NOTE | 2017-05-01 21:25 | RADRPT ---
EXAM DATE/TIME: 05/01/2017 21:05 [place] COMPARISON: CT ABDOMEN & PELVIS W/O CONTRAST, December 01, 2016, 14:37. INDICATIONS : Left abdomen pain. IV CONTRAST: 100 cc Omnipaque 350 (iohexol) IV ORAL CONTRAST: No oral contrast ingested. RADIATION DOSE: 12.87 CTDIvol (mGy) MEDICAL HISTORY : Hypothyroidism. SURGICAL HISTORY : None. ENCOUNTER: Initial ACUITY: >1 yr PAIN SCALE: 7/10 LOCATION: Left abdomen TECHNIQUE: Volumetric scanning of the abdomen and pelvis was performed. Using automated exposure control and ad justment of the mA and/or kV according to patient size, radiation dose was kept as low as reasonably achievable to obtain optimal diagnostic quality images. DICOM format image data is available electro nically for review and comparison. FINDINGS: LOWER LUNGS: The visualized lower lungs are clear. LIVER: Homogeneous density without lesion except for numerous benign cysts. There is no dilation of the josé miguel iary tree. No calcified gallstones. SPLEEN: Normal size without lesion. PANCREAS: Within normal limits. KIDNEYS: Normal in size and shape. There is no mass, stone or hydronephrosis. ADRENAL GLANDS: Within normal limits. VASCULAR: There is no aortic aneurysm. BOWEL/MESENTERY: The stomach, small bowel, and colon demonstrate no acute abnormality. There is no free intraperitone al air or fluid. ABDOMINAL WALL: Within normal limits. RETROPERITONEUM: There is no lymphadenopathy. BLADDER: No wall thickening or mass. REPRODUCTIVE: Within normal limits. INGUINAL: Mild hepatic prominence of the left inguinal canal could be a small hernia MUSCULOSKELETAL: The l eft acetabulum is quite dysplastic CONCLUSION: No free fluid or mass identified. No evidence of bowel obstruction. No significant inflammation. Juan Antonio Escobar MD on May 01, 2017 at 21:21 Board Certified Radiologist. This report was verified electronically.
[2017-05-01] MEDS ORDERED: IOHEXOL 350 MG/ML 10 ML VIAL (for RAD DIAG) IVCONTRAST ONE (21:28)
[2017-05-01] MEDS ORDERED: DICL75TA PO (21:42)
== END 2017-05-01 22:38 | disposition home or self-care (01) ==
LOC: NEPD 15:21
DX: M16.12 Unilateral primary osteoarthritis, left hip (principal); M54.9 Dorsalgia, unspecified; Z79.899 Other long term (current) drug therapy; E03.9 Hypothyroidism, unspecified; R10.9 Unspecified abdominal pain
CPT/HCPCS: 74177; 80053; 81001; 83605; 83690; 84443; 85025; 85610; 85730; 96360; 99285; J7030; Q9967